=== PATIENT | male | born 1970 | race Caucasian/White ===

== ENCOUNTER 2016-10-20 21:01 | Inpatient (IN) ==
[2016-10-20 21:49] LABS: Basophils # 0.1 K/mcL (0.0-0.2); Basophils % 0.3 %; Hemoglobin 13.6 g/dL (12.9-16.9); Immature Granulocytes % 0.9 % (0-4); Lymphocytes # 1.6 K/mcL (0.6-4.6); Lymphocytes % 7.6 %; Mean Corpuscular HGB Conc 32.4 g/dL (31.6-35.5); Mean Corpuscular Hemoglobin 28.8 pg (28.0-33.3); Mean Platelet Volume 10.5 fL (9.4-12.4); Monocytes % 9.3 %; Neutrophils # 17.5 K/mcL (1.6-8.9); Platelet Count 257 K/mcL (140-400); Red Blood Count 4.72 M/mcL (4.19-5.50); Red Cell Distribution Width 12.9 % (11.5-14.5); Segmented Neutrophils % 81.9 %
[2016-10-20] MEDS ORDERED: CefTRIAXone 1,000 MG VIAL IM ONE (22:00)
[2016-10-20 22:03] LABS: Calcium 9.5 mg/dL (8.6-10.8); Potassium 4.1 mEq/L (3.5-4.5)
[2016-10-20] MEDS ORDERED: Lidocaine -MPF 1% 2 ML VIAL ONE (22:05)
[2016-10-20] MEDS ORDERED: 0.9 % Sodium Chloride 1,000 ML IVC ONE ×2 (22:10→22:29)
[2016-10-20 22:30] LABS: Magnesium 1.5 mg/dL (1.6-2.6); Phosphorous 3.1 mg/dL (2.3-4.7)
[2016-10-20] MEDS ORDERED: Azithromycin 500 MG in D5% in Water 250 ML IVPB ONE (22:30)
[2016-10-20 22:36] LABS: Beta-Hydroxybutyric Acid 0.28 mmol/L (0.02-0.27)
--- NOTE | 2016-10-20 22:45 | Emergency Department Note ---
Disposition Clinical Impression: Community acquired pneumonia, Severe sepsis Disposition: Admitted As Inpatient Condition: Good Referrals: Anjali Lou CNP [Primary Care Provider] - Forms: ED Satisfaction Letter Time of Disposition: 23:02 General Adult HPI - General Chief complaint: ED Shortness of Breath/Dyspnea Stated complaint: "acute pneumonia in R lung"/sent from Time Seen by Provider: 10/20/16 21:20 Source: patient Limitations: no limitations Nursing Notes Reviewed: Yes Vital Signs Reviewed: Yes - History of Present Illness HPI Narrative: Male patient being sent from urgent care for pneumonia. He reports a 4 to five- day history of productive cough and a three-day history of shortness of breath. He reports fevers at home. He did have a fever at urgent care and was given Tylenol. States that he has just felt tired. The Tylenol did help him feel better. Pain Scale: 0 - Related Data Home Medications Medication Instructions Recorded Confirmed Atorvastatin [Lipitor] 20 mg PO DAILY 10/20/16 10/20/16 FLUoxetine HCl [PROzac] 20 mg PO DAILY 10/20/16 10/20/16 Lisinopril [Zestril] 40 mg PO DAILY 10/20/16 10/20/16 Metformin [Glucophage] 1,000 mg PO BID 10/20/16 10/20/16 Allergies Allergy/AdvReac Type Severity Reaction Status Date / Time No Known Allergies Allergy Verified 10/20/16 21:08 Review of Systems: Patient reports fevers. States that he has had a cough for 4-5 days. It is productive with a whitish yellow sputum. He has had a general malaise. He has had one episode of vomiting today that he states is associated with the phlegm in his throat. He is not nauseated at this time. He has not had diarrhea. He denies any trouble swallowing. He reports rhinorrhea that is clear. He denies any abdominal pain. He denies any trouble urinating or defecating. He denies any hematuria hematochezia or melena. He denies any edema or swelling or pain in any of his extremities. All systems ED: reviewed and negative except as stated. Past Medical History - Past Medical History Medical history: Reports: diabetes, hypertension, other Psychiatric history: Reports: no psych history - Social History Smoking Status: Never smoker Smokeless Tobacco Status: No Alcohol use: Reports: none Drug use: Reports: none Physical Exam Patient is an obese male sitting on the side of the bed. He does not appear in any distress. He does have rhonchi in his right lower lobe. There is no wheezing. His left lung is clear. Patient's heart tones are normal. Patient' s pupils are equal and reactive to light. Extraocular motions are intact. His trachea is midline he does not have JVD. I do not appreciate any thyromegaly or lymphadenopathy. His abdomen is soft nondistended. Exam is limited by patient size. I do not appreciate any organomegaly. He has full range of motion and pulses in all 4 extremities. I do not appreciate any pedal edema. Patient does have costochondral tenderness to palpation on the right side. The pain is associated with his cough. - General Limitations: no limitations General appearance: alert - Back Exam Back exam: Present: normal inspection, full ROM. Absent: tenderness - Neurological Exam Neurological exam: Present: alert, oriented X3 - Psychiatric Psychiatric exam: Present: normal affect, normal mood - Skin Skin exam: Present: warm, dry, intact, normal color. Absent: rash, cyanosis, diaphoresis Course Course Narrative: Male patient sent to the emergency department by urgent care for pneumonia. He does have a right middle lobe infiltrate. He is also hyperglycemic while he is here. He has a white count and is febrile. Patient denies any shortness of breath at this time. He states that he has trouble ambulating due to getting short of breath. We will admit patient as he meets sepsis criteria and for inpatient antibiotics also to control his blood glucose. I believe his right- sided chest pain is costochondral. It is reproducible on palpation and associated with this cough. Patient is agreeable to admission at this time. We will start him on azithromycin as well as ceftriaxone. - Reevaluation(s) Reevaluation #1: Patient meets SIRS criteria. He is also hyperglycemic. We will slowly hydrate him. He is a large individual and euvolemic at this time. He is not hypotensive. We will begin with 2 L of fluid and adjust up as needed. I do not believe is in the patient's best interest to load him with 4.5 L of fluid at this time. Time: 22:30 - Consultations Consultation #1: Dr Rodriguez admitted Pt in stable condition. Time: 23:02 Vital Signs Temperature 98.7 F 10/20/16 21:08 Pulse Rate 109 10/20/16 21:08 Respiratory Rate 20 10/20/16 21:08 Blood Pressure 105/63 10/20/16 21:08 O2 Sat by Pulse Oximetry 94 L 10/20/16 21:08 Temperature 98.7 F 10/20/16 21:08 Pulse Rate 100 10/20/16 21:39 Respiratory Rate 18 10/20/16 21:39 Blood Pressure 105/63 10/20/16 21:08 O2 Sat by Pulse Oximetry 92 L 10/20/16 21:39 Oxygen Delivery Oxygen Delivery Room Air Medical Decision Making - Medical Records Medical records reviewed: Yes I reviewed the patient's medical records. - Lab Data Lab results reviewed: Yes I reviewed the patient's lab results. Result diagrams: 10/20/16 21:42 10/20/16 21:42 Lab Results 10/20/16 10/20/16 10/20/16 Range/Units 21:42 21:42 21:42 WBC 21.4 H (4.3-11.1) K/mcL RBC 4.72 (4.19-5.50) M/mcL Hgb 13.6 (12.9-16.9) g/dL Hct 42.0 (37.5-50.1) % MCV 89.0 (83.0-100.0) fL MCH 28.8 (28.0-33.3) pg MCHC 32.4 (31.6-35.5) g/dL RDW 12.9 (11.5-14.5) % Plt Count 257 (140-400) K/mcL MPV 10.5 (9.4-12.4) fL Immature Gran % 0.9 (0-4) % Seg Neutrophils % 81.9 % Lymphocytes % 7.6 % Monocytes % 9.3 % Eosinophils % 0.0 % Basophils % 0.3 % Neutrophils # 17.5 H (1.6-8.9) K/mcL Lymphocytes # 1.6 (0.6-4.6) K/mcL Monocytes # 2.0 H (0.0-1.3) K/mcL Eosinophils # 0.0 (0.0-0.6) K/mcL Basophils # 0.1 (0.0-0.2) K/mcL VBG pH (7.32-7.42) pH Units VBG pCO2 (41-51) mmHg VBG pO2 (25-40) mmHg VBG HCO3 (21-27) mEq/L Sodium 132 L (136-145) mEq/L Potassium 4.1 (3.5-4.5) mEq/L Chloride 98 (98-109) mEq/L Carbon Dioxide 20 (19-29) mEq/L BUN 16 (8-26) mg/dL Creatinine 1.63 H (0.72-1.25) mg/dL Est GFR ( Amer) 56 L (> 60) Est GFR (Non-Af Amer) 46 L (> 60) BUN/Creatinine Ratio 10 (6-26) Glucose 566 H* (70-99) mg/dL Calculated Osmolality 301 H (280-300) Lactic Acid (0.5-2.2) mmol/L Calcium 9.5 (8.6-10.8) mg/dL Phosphorus 3.1 (2.3-4.7) mg/dL Magnesium 1.5 L (1.6-2.6) mg/dL Troponin I 0.00 (0-0.03) ng/mL Beta-Hydroxybutyric Acd 0.28 H (0.02-0.27) mmol/L 10/20/16 10/20/16 Range/Units 22:33 22:48 WBC (4.3-11.1) K/mcL RBC (4.19-5.50) M/mcL Hgb (12.9-16.9) g/dL Hct (37.5-50.1) % MCV (83.0-100.0) fL MCH (28.0-33.3) pg MCHC (31.6-35.5) g/dL RDW (11.5-14.5) % Plt Count (140-400) K/mcL MPV (9.4-12.4) fL Immature Gran % (0-4) % Seg Neutrophils % % Lymphocytes % % Monocytes % % Eosinophils % % Basophils % % Neutrophils # (1.6-8.9) K/mcL Lymphocytes # (0.6-4.6) K/mcL Monocytes # (0.0-1.3) K/mcL Eosinophils # (0.0-0.6) K/mcL Basophils # (0.0-0.2) K/mcL VBG pH 7.41 (7.32-7.42) pH Units VBG pCO2 40 L (41-51) mmHg VBG pO2 66 H (25-40) mmHg VBG HCO3 25.4 (21-27) mEq/L Sodium (136-145) mEq/L Potassium (3.5-4.5) mEq/L Chloride (98-109) mEq/L Carbon Dioxide (19-29) mEq/L BUN (8-26) mg/dL Creatinine (0.72-1.25) mg/dL Est GFR ( Amer) (> 60) Est GFR (Non-Af Amer) (> 60) BUN/Creatinine Ratio (6-26) Glucose (70-99) mg/dL Calculated Osmolality (280-300) Lactic Acid 3.0 H (0.5-2.2) mmol/L Calcium (8.6-10.8) mg/dL Phosphorus (2.3-4.7) mg/dL Magnesium (1.6-2.6) mg/dL Troponin I (0-0.03) ng/mL Beta-Hydroxybutyric Acd (0.02-0.27) mmol/L - Radiology Data Radiology results reviewed: Yes I reviewed the patient's radiology results. - EKG Data EKG #1 EKG results narrative: Sinus rhythm at a rate of 93. CT interval is 136. QRS duration is 121. QT is 328. QTC is 379. No signs of acute ischemia. No prior EKG to compare to. Attestation Statement - Attestation Attestation: I, Rusty Avila MD, personally performed a history and physical exam of the patient and discussed their management with the resident. I reviewed the resident's note and agree with the documented findings, medical decision making , and plan of care. 46-year-old male referred here from an outside urgent care for a right midlung pneumonia. Patient is a fxp-tqjsmrt-pclceaizd diabetic. He complains of a productive cough which started about 4 days prior to arrival. The sputum has been cleared to light yellowish in color. He has had some mild shortness of breath for the past 2 days. He developed a fever yesterday. He was seen at an urgent care clinic this evening and had a chest x-rays which showed a right midlung infiltrate. He was referred here for further evaluation and management. The patient did have a temp of 102.5 at the urgent care center and was given 1 g of Tylenol. He was also given a DuoNeb treatment. On examination patient is a well-developed morbidly obese male in no acute distress. He is alert and oriented 3. There is no cyanosis or diaphoresis. Breath sounds are clear and equal bilaterally. Heart regular rate and rhythm. Abdomen is soft and nontender with normal bowel sounds. Chest x-ray here shows a small right midlung pneumonia. Labs revealed a WBC of 21. He was also found to be hyperglycemic with a blood sugar of 566. He is not in DKA. Original plan was to treat the patient has an outpatient however after his labs returned and revealed the significant leukocytosis and significantly elevated blood sugar it was felt the patient would be better served by admission to the hospital with IV antibiotics. Additional labs were ordered and lactic acid was found to be elevated at 3.0. With this finding patient does meet criteria for severe sepsis. The hospitalist, Dr. Rodriguez, was consulted and accepted admission of the patient.
[2016-10-20 22:58] LABS: VBG HCO3 25.4 mEq/L (21-27); VBG PH 7.41 pH Units (7.32-7.42)
[2016-10-20] MEDS ORDERED: Acetaminophen 325 MG TABLET PO PRN (23:48)
[2016-10-20] MEDS ORDERED: Naloxone 0.4 MG/ML INJ IVP PRN (23:48)
[2016-10-20] MEDS ORDERED: Dextrose Gel 15 GM PO PRN ×2 (23:51)
[2016-10-20] MEDS ORDERED: D5% in Water 1,000 ML IV PRN (23:51)
[2016-10-20] MEDS ORDERED: *HR* Dextrose 50 % in Water (Syg) 50 ML SYRINGE IVP PRN (23:51)
[2016-10-20] MEDS ORDERED: Insulin LISPRO 300 UNITS/3 ML VIAL SQ ONE (23:54)
--- NOTE | 2016-10-20 23:59 | Internal Med History&Physical ---
Date of Encounter: 10/21/16 Time of Encounter: 23:45 Assessment and Plan (1) Community acquired pneumonia Current visit: Yes Status: Acute New productive cough with elevated white count and tachycardia. Chest XR: right mid lung focal airspace disease suspicious for small pneumonia. Given one dose of azithromycin and ceftriaxone in the ED. Was given 2L saline as well. Blood cultures drawn. Continue azithromycin and ceftriaxone. Continue maintenance fluids at 125ml/hr. Will obtain sputum cultures. (2) Severe sepsis Current visit: Yes Status: Acute Patient is positive for SIRS criteria with WBCs elevated at 21.4 and tachycardic >90bpm. Source of infection is pneumonia of the right middle lobe. Lactic acid is 3.0 and evidence of ELIZABETH. 2L fluid given in ED with antibiotics of azithromycin and ceftriaxone Continue antibiotics and fluids at 125ml/hr. (3) Diabetes Current visit: Yes Status: Acute With hyperglycemia currently at 566. Non insulin dependent. Give 16 units Lispro now. Diabetic diet with moderate correction scale. Qualifiers: Diabetes mellitus type: type 2 Diabetes mellitus complication status: without complication Diabetes mellitus usp insulin use: without director long term care use Qualified Code(s): E11.9 - Type 2 diabetes mellitus without complications (4) ELIZABETH (acute kidney injury) Current visit: Yes Status: Acute Creatinine at 1.63 at current visit. No previous labs. No history of CKD. Severe sepsis. 2L fluid given. Continue fluids. Hold lisinopril. (5) Essential (primary) hypertension Current visit: Yes Status: Acute Patient currently hypotensive at 105/63. Will hold lisinopril. Fluid repletion and continue to monitor. (6) Depression Current visit: Yes Status: Chronic Continue home medication Qualifiers: Depression Type: unspecified Qualified Code(s): F32.9 - Major depressive disorder, single episode, unspecified (7) DVT prophylaxis Current visit: Yes Status: Acute MARC antiembolic stockings and up ad emiliana ordered. GI prophylaxis protonix. (8) Morbid obesity with BMI of 40.0-44.9, adult Current visit: Yes Status: Acute Internal Medicine - H&P: HPI Chief complaint: cough, shortness of breath Admitted From: Emergency Dept Plans for Post Hospital Care: Home History of present illness: Mr. Kendall is a 46 year old male with PMH of DM and HTN presented to the emergency department for shortness of breath and cough. He states that his symptoms started four days ago with a cough that was productive of white and yellow sputum and he began to feel short of breath a day later. Additionally he states that he has been having intermittent fevers and generalized malaise. He had one instance of vomiting that he attributes to some phlegm getting caught in his throat. He denies any blood or bile in the vomit. He denies diarrhea and any change in bowel or bladder habits. He had had some clear nasal drainage and been feelings fatigued the last couple of days. He went to an urgent care earlier today and was instructed to come into the emergency department for further evaluation. Past Med Surg Social Fam HX - Past Medical History Medical history: diabetes, hypertension, other Psychiatric history: no psych history - Past Surgical History Surgical History: other (Sleep apnea corrective surgery) - Social History Smoking Status: Never smoker Smokeless Tobacco Status: No Alcohol use: none Drug use: none - Family History Father Living Status: Cause of : cancer Hx Family Cancer: Yes (melanoma) Internal Medicine - H&P: Meds Atorvastatin [Lipitor] 20 mg PO DAILY 10/20/16 [History] FLUoxetine HCl [PROzac] 20 mg PO DAILY 10/20/16 [History] Lisinopril [Zestril] 40 mg PO DAILY 10/20/16 [History] Metformin [Glucophage] 1,000 mg PO BID 10/20/16 [History] Allergies No Known Allergies Allergy (Verified 10/20/16 21:08) All Systems PM: A 10-system review of systems was performed and is negative for pertinent findings except as documented above in the HPI. - Constitutional Constitutional: fever(s), malaise, no chills, no night sweats, no weight gain, no weight loss - EENT Eyes: no change in vision, no discharge, no pain, no photophobia Ears: no ear discharge, no ear pain, no tinnitus Nose, mouth and throat: nasal discharge (clear), no dysphagia, no neck pain, no sore throat - Cardiovascular Cardiovascular ROS IM: no chest pain, no diaphoresis, no dyspnea, no lightheadedness, no palpitations, no syncope - Respiratory Respiratory: cough, dyspnea, chest congestion, excessive phlegm production, pain with cough, no wheezing - Gastrointestinal Gastrointestinal: vomiting, no abdominal pain, no diarrhea, no hematemesis, no hematochezia, no melena, no nausea - Musculoskeletal Musculoskeletal ROS IM: no numbness, no tingling - Integumentary Integumentary IM: no rash, no unusual bruising - Neurological Neurological ROS: no confusion, no convulsions, no focal weakness, no numbness, no tingling, no tremor(s) - Hematologic/Lymphatic Hematologic/Lymphatic: no easy bruising - Constitutional Vitals: Temp Pulse Resp BP Pulse Ox 98.7 F 100 0 0/0 92 L 10/20/16 21:08 10/20/16 21:39 10/20/16 23:49 10/20/16 23:49 10/20/16 21:39 General appearance: Present: A&O X 3, pleasant, no acute distress, obese - Head Head exam: Present: atraumatic, normocephalic - Eye Eye exam: Present: EOMI, PERRL, conjuntiva pink, sclera anicteric Pupils: Present: PERRL - Neck Neck exam general surgery: Present: supple, trachea midline. Absent: lymphadenopathy - Respiratory Respiratory exam: Present: rales (Right middle lung field). Absent: accessory muscle use, rhonchi, wheezes - Cardiovascular Cardiovascular exam: Present: +S1, +S2, tachycardia. Absent: diastolic murmur, gallop, rubs, systolic murmur - GI/Abdominal GI/Abdominal exam: Present: normal bowel sounds, soft, no peritoneal signs. Absent: distended, tenderness - Extremities Exam Extremities exam: Present: warm, radial pulses palpable and symetrical. Absent : calf tenderness, cyanotic, pedal edema - Neurological Exam Neurological exam: Present: CN II-XII intact, oriented X3, no focal deficits. Absent: pronater drift, facial droop, speech deficit - Skin Skin exam: Present: dry, intact Internal Med - H&P Results - Labs CBC & Chem 7: 10/20/16 21:42 10/20/16 21:42 - Attending Attestation I examined this patient and my medical decision-making was reviewed with the SPINDLE PLUMBER/PA/Advanced Practice Nurse/Resident Physician. I agree with the documented findings, disposition and treatment plan as described except to the extent set forth below.
[2016-10-21] MEDS: Azithromycin 500 MG in D5% in Water 250 ML IVPB SCH (00:33)
[2016-10-21] MEDS: 0.9 % Sodium Chloride 1,000 ML IVC SCH ×4 (00:34→22:17)
[2016-10-21] MEDS: Pantoprazole 40 MG VIAL IVP SCH ×2 (00:39→09:09)
[2016-10-21] MEDS: *HR* HYDROcodone/Acet 5/325 mg TABLET PO PRN ×3 (01:21→20:47)
[2016-10-21 01:22] LABS: BUN/Creatinine Ratio 13 (6-26); Blood Urea Nitrogen 17 mg/dL (8-26); Carbon Dioxide 21 mEq/L (19-29); Chloride 100 mEq/L (98-109); Osmolality,Calculated 297 (280-300); Potassium 4.5 mEq/L (3.5-4.5); Sodium 131 mEq/L (136-145); eGFR For African Americans > 60 (> 60); eGFR For Non-African Americans 57 (> 60)
[2016-10-21 01:24] LABS: Glucose 526 mg/dL (70-99)
[2016-10-21] MEDS ORDERED: Insulin DETEMIR 100 UNIT/ML X5UNITS SQ SCH (01:30)
[2016-10-21 04:51] LABS: Hemoglobin A1C 10.6 %
[2016-10-21] MEDS: Insulin LISPRO 300 UNITS/3 ML VIAL SQ SCH ×7 (08:41→20:48)
[2016-10-21] MEDS: FLUoxetine 20 MG CAPSULE PO SCH (09:09)
--- NOTE | 2016-10-21 12:19 | Internal Med Progress Note ---
<Rio Walters - Last Filed: 10/21/16 12:17> Date of Encounter: 10/21/16 Time of Encounter: 08:15 - Assessment and plan (1) Community acquired pneumonia Current Visit: Yes Status: Acute Assessment and plan: Patient presents with severe sepsis, CXR suspicious for pneumonia. Clinical improvement has been seen with the start of Azithromycin and Ceftriaxone, as well as IVF. Continue IVF at 125 ml/hr Continue azithromycin and ceftriaxone Breathing treatments with duonebs prn Continue to monitor (2) Severe sepsis Current Visit: Yes Status: Acute Assessment and plan: Patient is positive for SIRS criteria with WBCs elevated at 21.4 and tachycardic >90bpm. Source of infection is pneumonia of the right middle lobe. Lactic acid is 3.0 and evidence of ELIZABETH. Lactic acid has trended down to 1.5. 2L fluid given in ED with antibiotics of azithromycin and ceftriaxone Continue antibiotics and fluids at 125ml/hr (3) Diabetes Current Visit: Yes Status: Acute Assessment and plan: Patient on Metformin at home normally. He has an elevated A1c, showing limited control of diabetes at home. Basal insulin dose made BID (25 U BID Levemir) Will continue TIDWM dosing of short-acting insulin Continue medium dose insulin sliding scale continue to monitor Qualifiers: Diabetes mellitus type: type 2 Diabetes mellitus complication status: without complication Diabetes mellitus exterminator helper insulin use: without skilled nursing use Qualified Code(s): E11.9 - Type 2 diabetes mellitus without complications (4) ELIZABETH (acute kidney injury) Current Visit: Yes Status: Acute Assessment and plan: Patient presents with an increased SCr at admission. With the administration of IVF he has been having improvement in his ELIZABETH, though still has an elevated SCr. Will continue supplemental fluids Avoid potentially nephrotoxic agents Continue to monitor (5) Essential (primary) hypertension Current Visit: Yes Status: Acute Assessment and plan: Patient has been having low-normal blood pressures during admission so far. He has a history of hypertension, for which he takes Lisinopril at home normally. Will restas\rt patient Lisinopril as tolerated by patient blood pressure (6) DVT prophylaxis Current Visit: Yes Status: Acute Assessment and plan: Encourage ambulation Heparin 5000 U SQ TID (7) Morbid obesity with BMI of 40.0-44.9, adult Current Visit: Yes Status: Acute - Subjective Interval history: Patient reports that he is doing well today. He reports that he is still having some shortness of breath as well as some pain with inspiration in the Right lower flank. He describes this as sharp and achy that he associates with his pneumonia. - Constitutional Vitals: Temp Pulse Resp BP Pulse Ox 98.5 F 89 16 125/78 95 10/21/16 12:10 10/21/16 12:10 10/21/16 12:10 10/21/16 12:10 10/21/16 12:10 General appearance: Present: cooperative, A&O X 3, pleasant, no acute distress, obese, answers questions appropriately - Head Head exam: Present: atraumatic, normocephalic - Eye Eye exam: Present: conjuntiva pink, sclera anicteric - ENT ENT exam: Present: mucous membranes moist, normal oropharynx - Neck Neck exam general surgery: Present: supple, trachea midline. Absent: lymphadenopathy - Respiratory Respiratory exam: Present: rales (Right Lower Lung field). Absent: accessory muscle use, CTAB, rhonchi, wheezes - Cardiovascular Cardiovascular exam: Present: RRR, +S1, +S2. Absent: diastolic murmur, gallop, rubs, systolic murmur - GI/Abdominal GI/Abdominal exam: Present: normal bowel sounds, soft, no peritoneal signs. Absent: distended, tenderness - Extremities Exam Extremities exam: Present: warm, radial pulses palpable and symetrical. Absent : calf tenderness, cyanotic, pedal edema - Neurological Exam Neurological exam: Present: alert, oriented X3, no focal deficits. Absent: facial droop, speech deficit - Skin Skin exam: Present: dry, intact Internal Medicine: Result - Labs CBC & Chem 7: 10/20/16 21:42 10/21/16 01:01 Labs: BMP 10/21/16 01:01 Sodium 131 L Potassium 4.5 Chloride 100 Carbon Dioxide 21 BUN 17 Creatinine 1.35 H Glucose 526 H* Calcium 9.0 - VTE Documentation of Mechanical Device: Graduated compression elastic hosiery Consult Discharge Plan - Plan Referrals: Anjali Lou, ANA [Primary Care Provider] - <Dhiraj Ulrich - Last Filed: 10/21/16 18:45> Date of Encounter: 10/21/16 - Constitutional Vitals: Temp Pulse Resp BP Pulse Ox 98.5 F 94 17 129/85 96 10/21/16 16:56 10/21/16 16:56 10/21/16 16:56 10/21/16 16:56 10/21/16 16:56 Internal Medicine: Result - Labs CBC & Chem 7: 10/20/16 21:42 10/21/16 01:01 Labs: BMP 10/21/16 01:01 Sodium 131 L Potassium 4.5 Chloride 100 Carbon Dioxide 21 BUN 17 Creatinine 1.35 H Glucose 526 H* Calcium 9.0 - Attending Attestation I examined this patient and my medical decision-making was reviewed with the SAFETY ENGINEER/PA/Advanced Practice Nurse/Resident Physician. I agree with the documented findings, disposition and treatment plan as described except to the extent set forth below. CAP, getting better. H/O ELOY. Continue with ov antibiotics. D/W patient and his family in detail.
[2016-10-21] MEDS: *HR* Heparin 5,000 UNIT/ML VIAL SQ SCH ×2 (14:07→20:47)
--- NOTE | 2016-10-21 16:39 | Electrocardiograph Report ---
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
[2016-10-21] MEDS: Insulin DETEMIR 100 UNIT/ML X5UNITS SQ SCH (20:47)
[2016-10-21] MEDS ORDERED: Azithromycin 500 MG VIAL IVPB ONE ×2 (23:33→23:38)
[2016-10-22] MEDS: Azithromycin 500 MG in D5% in Water 250 ML IVPB SCH ×2 (00:35→23:32)
[2016-10-22 04:23] LABS: Basophils # 0.1 K/mcL (0.0-0.2); Basophils % 0.8 %; Eosinophils # 0.2 K/mcL (0.0-0.6); Eosinophils % 2.2 %; Hematocrit 39.4 % (37.5-50.1); Hemoglobin 12.5 g/dL (12.9-16.9); Immature Granulocytes % 1.2 % (0-4); Lymphocytes # 4.1 K/mcL (0.6-4.6); Lymphocytes % 40.7 %; Mean Corpuscular HGB Conc 31.7 g/dL (31.6-35.5); Mean Corpuscular Hemoglobin 28.7 pg (28.0-33.3); Mean Corpuscular Volume 90.4 fL (83.0-100.0); Mean Platelet Volume 10.5 fL (9.4-12.4); Monocytes # 0.7 K/mcL (0.0-1.3); Monocytes % 6.9 %; Neutrophils # 4.8 K/mcL (1.6-8.9); Platelet Count 208 K/mcL (140-400); Red Blood Count 4.36 M/mcL (4.19-5.50); Red Cell Distribution Width 12.8 % (11.5-14.5); Segmented Neutrophils % 48.2 %
[2016-10-22 04:41] LABS: BUN/Creatinine Ratio 14 (6-26); Blood Urea Nitrogen 11 mg/dL (8-26); Calcium 8.5 mg/dL (8.6-10.8); Carbon Dioxide 27 mEq/L (19-29); Chloride 106 mEq/L (98-109); Glucose 195 mg/dL (70-99); Magnesium 1.8 mg/dL (1.6-2.6); Osmolality,Calculated 287 (280-300); Potassium 3.9 mEq/L (3.5-4.5); Sodium 136 mEq/L (136-145); eGFR For African Americans > 60 (> 60); eGFR For Non-African Americans > 60 (> 60)
[2016-10-22] MEDS: *HR* HYDROcodone/Acet 5/325 mg TABLET PO PRN (05:45)
[2016-10-22] MEDS: *HR* Heparin 5,000 UNIT/ML VIAL SQ SCH ×3 (05:45→22:05)
[2016-10-22] MEDS: Pantoprazole 40 MG VIAL IVP SCH (08:17)
[2016-10-22] MEDS: FLUoxetine 20 MG CAPSULE PO SCH (08:18)
[2016-10-22] MEDS: Insulin LISPRO 300 UNITS/3 ML VIAL SQ SCH ×7 (08:18→22:02)
[2016-10-22] MEDS: Lisinopril 20 MG TABLET PO SCH (08:18)
[2016-10-22] MEDS: 0.9 % Sodium Chloride 1,000 ML IVC SCH (08:19)
[2016-10-22] MEDS: Insulin DETEMIR 100 UNIT/ML X5UNITS SQ SCH ×2 (09:14→22:05)
--- NOTE | 2016-10-22 11:21 | Internal Med Progress Note ---
<Rio Walters - Last Filed: 10/22/16 11:18> Date of Encounter: 10/22/16 Time of Encounter: 08:10 - Assessment and plan (1) Community acquired pneumonia Current Visit: Yes Status: Acute Assessment and plan: Patient presents with severe sepsis, CXR suspicious for pneumonia. Clinical improvement has been seen with the start of Azithromycin and Ceftriaxone, as well as IVF. Kidney function improved with IVF, will stop and encourage patient by mouth intake Stop IVF Continue azithromycin and ceftriaxone Breathing treatments with duonebs prn Continue to monitor (2) Severe sepsis Current Visit: Yes Status: Resolved Assessment and plan: Patient is positive for SIRS criteria with WBCs elevated at 21.4 and tachycardic >90bpm at admission. Source of infection is pneumonia of the right middle lobe. Lactic acid is 3.0 and evidence of ELIZABETH. Lactic acid has trended down to 1.5 and AK I has resolved as of 10/22/16 2L fluid given in ED with antibiotics of azithromycin and ceftriaxone Sepsis resolved Treatment as above (3) Diabetes Current Visit: Yes Status: Acute Assessment and plan: Patient on Metformin at home normally. He has an elevated A1c, showing limited control of diabetes at home. Blood glucose appears controlled with increase of basal insulin. Basal insulin dose made BID (25 U BID Levemir) Will continue TIDWM dosing of short-acting insulin Continue medium dose insulin sliding scale continue to monitor Qualifiers: Diabetes mellitus type: type 2 Diabetes mellitus complication status: without complication Diabetes mellitus chcf insulin use: without chcf use Qualified Code(s): E11.9 - Type 2 diabetes mellitus without complications (4) ELIZABETH (acute kidney injury) Current Visit: Yes Status: Acute Assessment and plan: Patient presents with an increased SCr at admission. With the administration of IVF he has been having improvement in his ELIZABETH, though still has an elevated SCr. Resolution of patient ELIZABETH seen on 11/01 Will continue supplemental fluids Avoid potentially nephrotoxic agents Continue to monitor (5) Essential (primary) hypertension Current Visit: Yes Status: Acute Assessment and plan: Patient has been having low-normal blood pressures during admission so far. He has a history of hypertension, for which he takes Lisinopril at home normally. Will restart patient Lisinopril as tolerated by patient blood pressure (6) DVT prophylaxis Current Visit: Yes Status: Acute Assessment and plan: Encourage ambulation Heparin 5000 U SQ TID (7) Morbid obesity with BMI of 40.0-44.9, adult Current Visit: Yes Status: Acute - Subjective Interval history: Patient states he feels improved today compared to yesterday. He states improvement in his shortness of breath, as well as improvement in his pleuritic chest pain. He states now the pain only occurs with very deep breaths and coughs. He also states he is able sleep well last night. He denies other complaints or concerns today - Constitutional Vitals: Temp Pulse Resp BP Pulse Ox 97.9 F 95 18 112/66 97 10/22/16 06:57 10/22/16 06:57 10/22/16 06:57 10/22/16 06:57 10/22/16 06:57 General appearance: Present: cooperative, A&O X 3, pleasant, no acute distress, obese, answers questions appropriately Exam: General: Cooperative, pleasant, no acute distress, alert and oriented 3, answers questions appropriately Head: Normocephalic, atraumatic Eye: Conjunctiva pink, sclera anicteric, EOMI, PERRL Neck: Supple, trachea midline Respiratory: No accessory muscle usage, slight rales auscultated, bibasilar Cardiovascular: Regular rate and rhythm, S1 and S2 present, no murmurs/rubs/ gallops/clicks appreciated GI/abdominal: Nondistended, nontender, soft, normal bowel sounds, no peritoneal signs Extremities: No calf tenderness, noncyanotic, no pedal edema appreciated, warm, lower extremity pulses palpable and symmetrical Neurological: Alert and oriented 3, no facial droop,deficits, no focal deficits Skin: Dry and intact Internal Medicine: Result - Labs CBC & Chem 7: 10/22/16 03:46 10/22/16 03:46 Labs: Short CBC 10/22/16 Range/Units 03:46 WBC 10.0 D (4.3-11.1) K/mcL Hgb 12.5 L (12.9-16.9) g/dL Hct 39.4 (37.5-50.1) % Plt Count 208 (140-400) K/mcL Neutrophils # 4.8 (1.6-8.9) K/mcL BMP 10/22/16 03:46 Sodium 136 Potassium 3.9 Chloride 106 Carbon Dioxide 27 BUN 11 Creatinine 0.80 Glucose 195 H Calcium 8.5 L - VTE Documentation of Mechanical Device: Graduated compression elastic hosiery Consult Discharge Plan - Plan Referrals: Anjali Lou, ANA [Primary Care Provider] - <Dhiraj Ulrich - Last Filed: 10/22/16 14:10> Date of Encounter: 10/22/16 - Constitutional Vitals: Temp Pulse Resp BP Pulse Ox 98 F 67 19 111/72 98 10/22/16 11:29 10/22/16 11:29 10/22/16 11:29 10/22/16 11:29 10/22/16 11:29 Internal Medicine: Result - Labs CBC & Chem 7: 10/22/16 03:46 10/22/16 03:46 Labs: Short CBC 10/22/16 Range/Units 03:46 WBC 10.0 D (4.3-11.1) K/mcL Hgb 12.5 L (12.9-16.9) g/dL Hct 39.4 (37.5-50.1) % Plt Count 208 (140-400) K/mcL Neutrophils # 4.8 (1.6-8.9) K/mcL BMP 10/22/16 03:46 Sodium 136 Potassium 3.9 Chloride 106 Carbon Dioxide 27 BUN 11 Creatinine 0.80 Glucose 195 H Calcium 8.5 L Urine 10/22/16 Range/Units 11:25 Urine Color Yellow (Yellow) Urine Clarity Clear (Clear) Urine pH 6.0 (5.0-8.0) pH Units Ur Specific [place] 1.022 (1.010-1.025) Urine Protein Negative (Neg-Trace) mg/dL Urine Glucose (UA) 500 H (Normal) mg/dL - Attending Attestation I examined this patient and my medical decision-making was reviewed with the LAUNCH[employer] MECH[employer]IC/PA/Advanced Practice Nurse/Resident Physician. I agree with the documented findings, disposition and treatment plan as described except to the extent set forth below. Community-acquired pneumonia, improving clinically, afebrile. Continue with current IV antibiotics, possible discharge tomorrow in a.m. Discussed with patient.
[2016-10-22 11:37] LABS: Bilirubin,Urine Negative (Negative); Blood,Urine Negative (Negative); Clarity,Urine Clear (Clear); Color,Urine Yellow (Yellow); Glucose,Urine (UA) 500 mg/dL (Normal); Ketones,Urine Negative (Negative); Leukocyte Esterase,Urine Negative (Negative); Nitrite,Urine Negative (Negative); Protein,Urine Negative (Neg-Trace); Specific Gravity,Urine 1.022 (1.010-1.025); Urobilinogen,Urine Normal (Normal)
[2016-10-23 04:19] LABS: Basophils # 0.1 K/mcL (0.0-0.2); Basophils % 0.6 %; Eosinophils # 0.3 K/mcL (0.0-0.6); Eosinophils % 3.5 %; Hematocrit 37.1 % (37.5-50.1); Hemoglobin 12.1 g/dL (12.9-16.9); Immature Granulocytes % 1.7 % (0-4); Lymphocytes # 4.2 K/mcL (0.6-4.6); Lymphocytes % 52.4 %; Mean Corpuscular HGB Conc 32.6 g/dL (31.6-35.5); Mean Corpuscular Hemoglobin 29.3 pg (28.0-33.3); Mean Corpuscular Volume 89.8 fL (83.0-100.0); Mean Platelet Volume 10.7 fL (9.4-12.4); Monocytes # 0.5 K/mcL (0.0-1.3); Monocytes % 6.5 %; Neutrophils # 2.8 K/mcL (1.6-8.9); Platelet Count 227 K/mcL (140-400); Red Blood Count 4.13 M/mcL (4.19-5.50); Red Cell Distribution Width 12.9 % (11.5-14.5); Segmented Neutrophils % 35.3 %
[2016-10-23 04:35] LABS: BUN/Creatinine Ratio 15 (6-26); Blood Urea Nitrogen 12 mg/dL (8-26); Calcium 8.8 mg/dL (8.6-10.8); Carbon Dioxide 23 mEq/L (19-29); Chloride 110 mEq/L (98-109); Glucose 150 mg/dL (70-99); Osmolality,Calculated 291 (280-300); Potassium 3.9 mEq/L (3.5-4.5); Sodium 139 mEq/L (136-145); eGFR For African Americans > 60 (> 60); eGFR For Non-African Americans > 60 (> 60)
[2016-10-23] MEDS: *HR* Heparin 5,000 UNIT/ML VIAL SQ SCH (05:26)
[2016-10-23] MEDS: Lisinopril 20 MG TABLET PO SCH (09:09)
[2016-10-23] MEDS: FLUoxetine 20 MG CAPSULE PO SCH (09:09)
[2016-10-23] MEDS: Pantoprazole 40 MG VIAL IVP SCH (09:09)
[2016-10-23] MEDS: Insulin LISPRO 300 UNITS/3 ML VIAL SQ SCH ×4 (09:10→11:43)
[2016-10-23] MEDS: Insulin DETEMIR 100 UNIT/ML X5UNITS SQ SCH (09:12)
--- NOTE | 2016-10-23 10:40 | Discharge Summary ---
<Rio Walters - Last Filed: 10/23/16 10:33> Date of Encounter: 10/23/16 Time of Encounter: 07:30 - Discharge Diagnosis (1) Community acquired pneumonia Priority: Primary Status: Acute (2) Severe sepsis Priority: Primary Status: Resolved (3) Diabetes Priority: Primary Status: Acute Qualifiers: Diabetes mellitus type: type 2 Diabetes mellitus complication status: without complication Diabetes mellitus buttermaker continuous churn insulin use: without intermediate use Qualified Code(s): E11.9 - Type 2 diabetes mellitus without complications (4) ELIZABETH (acute kidney injury) Priority: Secondary Status: Acute (5) Essential (primary) hypertension Priority: Primary Status: Acute (6) DVT prophylaxis Priority: Secondary Status: Acute (7) Morbid obesity with BMI of 40.0-44.9, adult Priority: Secondary Status: Acute - Discharge Medications Prescriptions: Azithromycin [Zithromax] 500 mg PO Q24H 3 Days Home Medications: Atorvastatin [Lipitor] 20 mg PO DAILY 10/20/16 [History] FLUoxetine HCl [Prozac] 20 mg PO DAILY 10/20/16 [History] Lisinopril [Zestril] 40 mg PO DAILY 10/20/16 [History] Metformin [Glucophage] 1,000 mg PO BID 10/20/16 [History] Azithromycin [Zithromax] 500 mg PO Q24H 3 Days 10/23/16 [Rx] Allergies/Adverse Reactions: Allergies No Known Allergies Allergy (Verified 10/20/16 21:08) Date of admission: 10/20/16 23:28 Primary care physician: Anjali Lou Consults: 10/21/16 01:26 Consult to [facility] [CONS] Routine Comment: Discharging clinician: Rio Walters Anticipated date of discharge: 10/23/16 - Patient Status Disposition: Home, Self-Care Condition: Good Functional capacity at discharge: independent ambulation Overall status at discharge: patient is progressing back to baseline - Discharge Instructions Instructions: Diabetes Mellitus Type 2 in Adults (DC), Sepsis (DC), Pneumonia ( DC) Follow Up With: Anjali Lou, ANA [Primary Care Provider] - Additional Instructions: Continue antibiotics as directed: Azithromycin for additional 3 days Follow-up with your PCP in 1-2 weeks for recheck of respiratory status and discuss continued diabetic management Recommend lifestyle modifications, including: Daily exercise, weight loss, and adherence to a diabetic diet Continue home metformin, but A1c elevated patient would benefit from last saw modifications and improvement in A1c - Diet and Activity Activity: increase activity as tolerated Diet: diabetic diet Interval History: Patient reports doing well today, with improvement in his inspirational chest pain. No concerns/complaints as morning. No fever or chills, no cough, no chest pain, no abdominal pain. Hospital course: Mr. Kendall is a 46 year old male who present to [place] with chief concern: Community-acquired pneumonia Comorbidities would include: Diabetes and hypertension @ Hospital course: Mr. Kendall is a 46-year-old male who was admitted to [facility] on 10/16/16 having had shortness of breath with cough productive of white/yellow sputum for 4 days prior to presentation. He was found to be septic with an acute kidney injury at the time admission. Initially given IV fluids and resolution of his sepsis and AK I worsening. He was found have community acquired pneumonia with chest x-ray consistent with right mid lung focal airspace disease. He was she was ceftriaxone and azithromycin starting on 10/16/16. He improved daily and is safe for discharge with continuation of antibiotic treatment. @ At time of discharge, patient was clinically improved, hemodynamically stable, progressing to baseline, and agreeable with plan of care. Patient was advised to seek immediate medical attention for any new or worsening symptoms including but not limited to fever, chills, chest pain, chest pressure, dyspnea, cough, abdominal pain, nausea, vomiting, diarrhea, bloody stool, urine and the patient voiced understanding. Patient will follow-up with primary care physician: - Time Spent with Patient Total time spent providing and/or coordinating discharge services: - Constitutional Vitals: Temp Pulse Resp BP Pulse Ox 97.7 F 87 18 136/87 97 10/23/16 06:39 10/23/16 06:39 10/23/16 06:39 10/23/16 06:39 10/23/16 06:39 General appearance: Present: cooperative, A&O X 3, pleasant, no acute distress, obese, answers questions appropriately Exam: General: Cooperative, pleasant, no acute distress, alert and oriented 3, answers questions appropriately Head: Normocephalic, atraumatic Eye: Conjunctiva pink, sclera anicteric, EOMI, PERRL Neck: Supple, trachea midline Respiratory: No accessory muscle usage, clear to auscultation bilaterally, no wheezes/rhonchi/rales appreciated Cardiovascular: Regular rate and rhythm, S1 and S2 present, no murmurs/rubs/ gallops/clicks appreciated GI/abdominal: Nondistended, nontender, soft, normal bowel sounds, no peritoneal signs Extremities: No calf tenderness, noncyanotic, no pedal edema appreciated, warm, lower extremity pulses palpable and symmetrical Neurological: Alert and oriented 3, no facial droop,deficits, no focal deficits Skin: Dry, intact, normal color - VTE Documentation of Mechanical Device: Graduated compression elastic hosiery <Dhiraj Ulrich - Last Filed: 10/23/16 13:49> Date of Encounter: 10/23/16 Date of admission: 10/20/16 23:28 Primary care physician: Anjali Lou Consults: 10/21/16 01:26 Consult to Zanjero [CONS] Routine Comment: Hospital course: Mr. Kendall is a 46 year old male - Time Spent with Patient Total time spent providing and/or coordinating discharge services: - Constitutional Vitals: Temp Pulse Resp BP Pulse Ox 98.3 F 74 18 127/77 96 10/23/16 11:14 10/23/16 11:14 10/23/16 11:14 10/23/16 11:14 10/23/16 11:14 - Attending Attestation The patient was seen and examined with the resident. I agree with the physical examination findings, assessment and plan as documented by the resident, Dr. Walters. Patient was admitted due to a community-acquired pneumonia, he has responded well to therapy. He will be discharged home with by mouth antibiotics.
[2016-10-23 11:17] VITALS: BP 127/77
== END 2016-10-23 12:52 | disposition home or self-care (01) | DRG 871 ==
LOC: EMEROO 21:01 → SUATTDRO 23:28 → 3NENU 23:28
PROVIDERS: ADMIT Family Medicine; ATTEND Internal Medicine